=== PATIENT | male | born 1965 ===

== ENCOUNTER → 2017-08-15 | Emergency (ER) | payer OTHER ==
[~2017-08-15] VITALS: Ht 175.3 cm; Wt 77.1 kg
[~2017-08-15] MED LIST: MILLIPRED5 MG
== END | disposition left against medical advice (07) ==
LOC: ER 09:32
DX: K57.92 Diverticulitis of intestine, part unspecified, without perforation or abscess without bleeding (principal); R10.32 Left lower quadrant pain

== ENCOUNTER 2017-09-26 13:30 | Inpatient (IN) | payer OTHER ==
[~2017-09-26] VITALS: Ht 175.3 cm; Wt 76.2 kg
[2017-09-26] MEDS ORDERED: FLAGYL500MG PO (14:46)
[2017-09-26] MEDS ORDERED: OMEPRAZOLE20 M1 PO (14:46)
[2017-09-26] MEDS ORDERED: CIPRO500 MG PO (14:46)
[2017-09-26] MEDS ORDERED: PROBIOTIC1 EACH PO (14:47)
== END 2017-10-09 13:01 | disposition home or self-care (01) | DRG 330 ==
LOC: ADM 13:30 → EDSTATUS 13:30 → O/R 10-03 06:37 → SURG 10-03 06:37 → SURH 10-03 12:45 → O/R 10-03 17:31 → SURG 10-03 19:45
PROVIDERS: Colon & Rectal Surgery
PROC: 0DJD8ZZ Inspection of Lower Intestinal Tract, Via Natural or Artificial Opening Endoscopic (ICD-10-PCS; 2017-10-03)
PROC: 4A1BXSH Monitoring of Gastrointestinal Vascular Perfusion using Indocyanine Green Dye, External Approach (ICD-10-PCS; 2017-10-03)
PROC: 0DTN4ZZ Resection of Sigmoid Colon, Percutaneous Endoscopic Approach (ICD-10-PCS; principal; 2017-10-03 12:45)
DX: K57.32 Diverticulitis of large intestine without perforation or abscess without bleeding (principal); K56.0 Paralytic ileus; K91.89 Other postprocedural complications and disorders of digestive system; D64.89 Other specified anemias

== ENCOUNTER 2018-01-23 12:22 | Day surgery (SDC) | payer OTHER ==
[~2018-01-23 12:22] MED LIST changes: +CIPRO500 MG PO; +FLAGYL500MG PO; +OMEPRAZOLE20 M1 PO; +PROBIOTIC1 EACH PO
== END 2018-01-23 19:20 | disposition home or self-care (01) ==
LOC: AMB-ENDOS 12:22
DX: K57.32 Diverticulitis of large intestine without perforation or abscess without bleeding (principal); K64.8 Other hemorrhoids